=== PATIENT | female | born 1980 | race Caucasian/White ===

== ENCOUNTER 2025-06-21 13:07 | Emergency (ER) | payer OTHER ==
[~2025-06-21] VITALS: Ht 165.1 cm; Wt 68.0 kg
[2025-06-21] MEDS ORDERED: Diazepam 5 MG / ML 2ML SYR IM ONE (16:40)
[2025-06-21] MEDS ORDERED: Sodium Bicarb 8.4% 50 mEq Syringe IV ONE (16:40)
[2025-06-21] MEDS ORDERED: Sodium Bicarb 8.4% 1 MEQ/ML 50 ML Vial XX ONE (16:45)
[2025-06-21] MEDS ORDERED: CEPH500 PO (17:50)
== END 2025-06-21 18:10 | disposition home or self-care (01) ==
LOC: ER 13:07
DX: S01.511A Laceration without foreign body of lip, initial encounter (principal); W22.8XXA Striking against or struck by other objects, initial encounter; F15.929 Other stimulant use, unspecified with intoxication, unspecified
CPT/HCPCS: 12051; 96372-59; 99282-25; A9270; J3360